=== PATIENT | female | born 1945 | race Caucasian/White ===

== ENCOUNTER 2019-02-15 06:10 | Day surgery (SDC) | payer OTHER ==
[~2019-02-15] VITALS: Ht 157.5 cm; Wt 59.2 kg
[2019-02-15 07:15] VITALS: Ht 157.5 cm; Wt 59.2 kg
--- NOTE | 2019-02-15 07:20 | PREAC ---
Date/Time of Note Date/Time of Note DATE: 02/15/19 TIME: 07:18 Anesthesia Eval and Record Evaluation Time Pre-Procedure Interview DATE: 02/15/19 TIME: 07:18 Age 73 Sex female NPO: 8 hrs Preoperative diagnosis Dysphagia, Colon Cancer Screening Planned procedure EGD, Colonoscopy Past Medical History Past Medical History: Includes Cardio: HTN Surgery & Anesthesia Issues No known issue Meds Anticoagulation: No Beta Sol within 24 hr: No Reason Beta Sol not given: Pt. not on B-Sol Meds reviewed: Yes Allergies Allergies Reviewed: Yes Labs/Studies Labs Reviewed: Reviewed by anesthesiologist test: N/A Pre-procedure Exam Airway: Adequate mouth opening Mallampati: Mallampati II Teeth: Normal Lung: Normal Heart: Normal ASA Physical Status ASA physical status: 2 Emergency: None Pre-operative Attestations Prior to commencing anesthesia and surgery, the patient was re-evaluated, there was verification of: *The patient's identity *The results of appropriate recent lab work and preoperative vital signs *The above evaluation not changing prior to induction *Anesthetic plan, risk benefits, alternative and complications discussed with patient/family; questions answered; patient/family understands, accepts and wishes to proceed. KWESI JADE MD February 15, 2019 07:20
[2019-02-15] MEDS ORDERED: PROPOFOL 40 ML ONE (07:22)
[2019-02-15] MEDS ORDERED: LIDOCAINE 2% (SDV) 5 ML INJ ONE (07:22)
[2019-02-15] MEDS ORDERED: PANTOPRAZOLE (07:23)
[2019-02-15] MEDS ORDERED: OYSTER CALCIUM (07:23)
[2019-02-15] MEDS ORDERED: HYDROXYCHLOROQUINE (07:23)
[2019-02-15] MEDS ORDERED: BACLOFEN (07:23)
[2019-02-15] MEDS ORDERED: CILOSTAZOL (07:23)
[2019-02-15] MEDS ORDERED: METHOTREXATE (07:23)
[2019-02-15] MEDS ORDERED: LABETALOL HCL 20MG INJ IV PRN (07:30)
[2019-02-15] MEDS ORDERED: ONDANSETRON 4 MG INJ IV PRN (07:30)
[2019-02-15] MEDS ORDERED: morphine (1 MG/ML) 10ML SYRINGE IV PRN (07:30)
[2019-02-15 07:42] VITALS: BP 134/62; PULSE 75; RESP 18
[2019-02-15] MEDS ORDERED: PROPOFOL 20 ML ONE (08:28)
[2019-02-15] MEDS ORDERED: EPHEDrine 25 MG/5 ML SYG ONE (08:29)
--- NOTE | 2019-02-15 08:49 | PAC ---
Date/Time of Note Date/Time of Note DATE: 02/15/19 TIME: 08:48 Post-Anesthesia Notes Post-Anesthesia Note Last documented vital signs Vital Signs Date Temp Pulse Resp B/P (MAP) Pulse Ox O2 O2 Flow FiO2 Time Delivery Rate 02/15/19 98.0 75 18 134/62 97 Room Air 07:42 (86) Activity: WNL Respiratory function: WNL Cardiovascular function: WNL Mental status: Baseline Pain reasonably controlled: Yes Hydration appropriate: Yes Nausea/Vomiting absent: Yes Comments BP: 118/64 HR: 98 RR: 15 T: 98 SaO2: 100% NEDA SHEPARD MD February 15, 2019 08:49
== END 2019-02-15 10:58 | disposition home or self-care (01) ==
LOC: GIL 06:10
PROVIDERS: ATTEND Internal Medicine Gastroenterology
DX: Z12.11 Encounter for screening for malignant neoplasm of colon (principal); D12.3 Benign neoplasm of transverse colon; K64.4 Residual hemorrhoidal skin tags; K57.30 Diverticulosis of large intestine without perforation or abscess without bleeding; I10 Essential (primary) hypertension
CPT/HCPCS: 88305; 88312